=== PATIENT | female | born 2000 | race Caucasian/White ===

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

== ENCOUNTER 2020-02-01 22:17 | Emergency (ER) | payer BC, OTHER ==
[2020-02-01 22:48] VITALS: BP 127/65; PULSE 84
[2020-02-01] MEDS ORDERED: Lactated Ringers 1,000 ML IV ONE (22:52)
[2020-02-01] MEDS ORDERED: Ketorolac 30 MG/ML SDV IVPUSH ONE (22:52)
[2020-02-01] MEDS ORDERED: Ondansetron 4 MG/2 ML SDV IVPUSH ONE (22:52)
[2020-02-01] MEDS ORDERED: HYDROmorphone 0.5 MG/0.5 ML Syringe IVPUSH ONE (22:53)
--- NOTE | 2020-02-01 23:01 | EDM.PDOC ---
ED HPI GENERAL MEDICAL PROBLEM - General Chief Complaint: Abdominal Pain Stated Complaint: RIGHT SIDE PAIN Time Seen by Provider: 02/01/20 22:45 Source of Information: Reports: Patient, Old Records, RN History Limitations: Reports: No Limitations - History of Present Illness INITIAL COMMENTS - FREE TEXT/NARRATIVE: 19 yo female presents with intermittent RLQ abdominal pain that began abruptly tonight about 10pm. No hx of the same. Is associated with nausea and vomiting. No recent GI issues. Stopped having menses when her current BC pills were started. No hematemesis. Onset: Today, Sudden Onset Date: 02/01/20 Onset Time: 22:00 Duration: Minutes:, Waxing/Waning Location: Reports: Abdomen (RLQ) Quality: Reports: Pressure Severity: Severe (at times) Improves with: Reports: None Worsens with: Reports: Other (unknown) Context: Reports: Other (See HPI) Associated Symptoms: Reports: Nausea/Vomiting. 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: Reports: Other (see below) (none) - Related Data Allergies Allergy/AdvReac Type Severity Reaction Status Date / Time No Known Allergies Allergy Verified 02/01/20 22:37 Home Meds: Home Meds Citalopram Hydrobromide [Celexa] 1 tab PO DAILY 09/15/19 [History] Norethindrone 1 tab PO DAILY 09/15/19 [History] Past Medical History - Past Health History Medical/Surgical History: Denies Medical/Surgical History Psychiatric History: Reports: Depression Endocrine/Metabolic History: Reports: Obesity/BMI 30+ - Infectious Disease History Infectious Disease History: Reports: Shingles - Past Surgical History Head Surgeries/Procedures: Reports: None Endocrine Surgical History: Reports: None Dermatological Surgical History: Reports: None Social & Family History - Tobacco Use Smoking Status *Q: Never Smoker Second Hand Smoke Exposure: No - Caffeine Use Caffeine Use: Reports: Coffee - Recreational Drug Use Recreational Drug Use: No ED ROS GENERAL - Review of Systems Review Of Systems: See Below Constitutional: Reports: No Symptoms HEENT: Reports: No Symptoms Respiratory: Reports: No Symptoms Cardiovascular: Reports: No Symptoms GI/Abdominal: Reports: Abdominal Pain (RLQ), Nausea, Vomiting. Denies: Black Stool, Bloody Stool, Constipation, Diarrhea, Distension, Flatus, Hematemesis, Hematochezia, Melena : Reports: Flank Pain (at times on the right), Other (amenorrhea). Denies: Dysuria, Hematuria Musculoskeletal: Reports: No Symptoms Skin: Reports: No Symptoms Neurological: Reports: No Symptoms ED EXAM, GI/ABD - Physical Exam Exam: See Below Exam Limited By: No Limitations General Appearance: Alert, WD/WN, Mild Distress Eyes: Bilateral: Normal Appearance Ears: Normal External Exam, Normal Canal, Hearing Grossly Normal, Normal TMs Nose: Normal Inspection, No Blood Throat/Mouth: Normal Inspection, Normal Lips, Normal Oropharynx, Normal Voice, No Airway Compromise Head: Atraumatic, Normocephalic Neck: Normal Inspection Respiratory/Chest: No Respiratory Distress, Lungs Clear, Normal Breath Sounds, No Accessory Muscle Use Cardiovascular: Regular Rate, Rhythm, No Edema GI/Abdominal Exam: Soft, Non-Tender, No Distention, Abnormal Bowel Sounds (decreased). No: Distended, Guarding, Rigid, Rebound, Tender Back Exam: Normal Inspection Extremities: Normal Inspection, Normal Range of Motion, Non-Tender, No Pedal Edema Neurological: Alert, Oriented, CN II-XII Intact, Normal Cognition Psychiatric: Normal Affect, Normal Mood Skin Exam: Warm, Dry, Intact, Normal Color, No Rash Course - Vital Signs Last Recorded V/S: Last Vital Signs Temp 35.4 C L 02/01/20 22:44 Pulse 84 02/01/20 22:44 Resp 18 02/01/20 22:44 BP 127/65 02/01/20 22:44 Pulse Ox 98 02/01/20 22:44 - Orders/Labs/Meds Labs: Laboratory Tests 02/01/20 02/01/20 02/01/20 Range/Units 23:13 23:52 23:52 WBC 11.8 H (4.5-11.0) K/uL RBC 4.33 (3.30-5.50) M/uL Hgb 12.4 (12.0-15.0) g/dL Hct 38.2 (36.0-48.0) % MCV 88 (80-98) fL MCH 29 (27-31) pg MCHC 33 (32-36) % Plt Count 218 (150-400) K/uL Sodium 137 L (140-148) mmol/L Potassium 3.1 L (3.6-5.2) mmol/L Chloride 101 (100-108) mmol/L Carbon Dioxide 25 (21-32) mmol/L Anion Gap 14.1 H (5.0-14.0) mmol/L BUN 11 (7-18) mg/dL Creatinine 1.0 (0.6-1.0) mg/dL Est Cr Clr Drug Dosing 81.42 mL/min Estimated GFR (MDRD) > 60 (>60) Glucose 110 H (74-106) mg/dL Calcium 9.2 (8.5-10.1) mg/dL C-Reactive Protein (0.0-0.3) mg/dL Urine Color Yellow (YELLOW) Urine Appearance Clear (CLEAR) Urine pH 7.0 (5.0-8.0) Ur Specific [place] 1.025 (1.008-1.030) Urine Protein Negative (NEGATIVE) mg/dL Urine Glucose (UA) Negative (NEGATIVE) mg/dL Urine Ketones Negative (NEGATIVE) mg/dL Urine Occult Blood Negative (NEGATIVE) Urine Nitrite Negative (NEGATIVE) Urine Bilirubin Negative (NEGATIVE) Urine Urobilinogen 0.2 (0.2-1.0) EU/dL Ur Leukocyte Esterase Negative (NEGATIVE) Urine RBC 0-5 (0-5) Urine WBC 0-5 (0-5) Ur Epithelial Cells Many Amorphous Sediment Few Urine Bacteria Few Urine Mucus Not seen Urine HCG, Qual 02/02/20 02/02/20 Range/Units 00:03 00:20 WBC (4.5-11.0) K/uL RBC (3.30-5.50) M/uL Hgb (12.0-15.0) g/dL Hct (36.0-48.0) % MCV (80-98) fL MCH (27-31) pg MCHC (32-36) % Plt Count (150-400) K/uL Sodium (140-148) mmol/L Potassium (3.6-5.2) mmol/L Chloride (100-108) mmol/L Carbon Dioxide (21-32) mmol/L Anion Gap (5.0-14.0) mmol/L BUN (7-18) mg/dL Creatinine (0.6-1.0) mg/dL Est Cr Clr Drug Dosing mL/min Estimated GFR (MDRD) (>60) Glucose (74-106) mg/dL Calcium (8.5-10.1) mg/dL C-Reactive Protein 0.51 H (0.0-0.3) mg/dL Urine Color (YELLOW) Urine Appearance (CLEAR) Urine pH (5.0-8.0) Ur Specific [place] (1.008-1.030) Urine Protein (NEGATIVE) mg/dL Urine Glucose (UA) (NEGATIVE) mg/dL Urine Ketones (NEGATIVE) mg/dL Urine Occult Blood (NEGATIVE) Urine Nitrite (NEGATIVE) Urine Bilirubin (NEGATIVE) Urine Urobilinogen (0.2-1.0) EU/dL Ur Leukocyte Esterase (NEGATIVE) Urine RBC (0-5) Urine WBC (0-5) Ur Epithelial Cells Amorphous Sediment Urine Bacteria Urine Mucus Urine HCG, Qual Negative Meds: Medications Discontinued Medications Generic Name Dose Route Start Last Admin Trade Name Freq PRN Reason Stop Dose Admin Hydromorphone HCl 0.5 mg 02/01/20 22:53 02/01/20 23:17 Dilaudid IVPUSH 02/01/20 22:54 0.5 mg ONETIME ONE Administration Hydromorphone HCl 0.5 mg 02/02/20 00:39 02/02/20 00:49 Dilaudid IVPUSH 02/02/20 00:40 0.5 mg ONETIME ONE Administration Lactated Ringer's 1,000 mls @ 1,000 mls/hr 02/01/20 22:52 02/01/20 23:21 Ringers, Lactated IV 02/01/20 23:51 1,000 mls/hr BOLUS ONE Administration Ketorolac Tromethamine 30 mg 02/01/20 22:52 02/01/20 23:20 Toradol IVPUSH 02/01/20 22:53 30 mg ONETIME ONE Administration Ondansetron HCl 4 mg 02/01/20 22:52 02/01/20 23:18 Zofran IVPUSH 02/01/20 22:53 4 mg ONETIME ONE Administration - Radiology Interpretation Free Text/Narrative:: CT abd/pelvis without contrast- IMPRESSION: 2 millimeter calculus right UVJ with mild right hydronephrosis. Normal appearing appendix. 3.0 centimeter left ovarian cyst. Dictated by Josh Velazco MD @ 02/02/2020 1:32:[address] Results Date: 02/02/20 CT Results Time: 01:35 Departure - Departure Time of Disposition: 01:50 Disposition: Home, Self-Care 01 Condition: Fair Clinical Impression: Renal colic on right side, Hypokalemia - Discharge Information *PRESCRIPTION DRUG MONITORING PROGRAM REVIEWED*: No *COPY OF PRESCRIPTION DRUG MONITORING REPORT IN PATIENT VINNY: No Instructions: Kidney Stones, [id number], Hypokalemia, Potassium Content of Foods Referrals: Mary Templeton MD [Primary Care Provider] - Forms: ED Department Discharge Additional Instructions: Avoid salt and eat a diet more rich in potassium. Drink ample fluids. Strain your urine and save any sediment for possible testing. Take Percocet as needed for pain relief per prescription directions. Take ibuprofen 600 mg every 6 hrs, next dose after 5 am today. Use Zofran as needed for nausea control. Recheck for fever. See your provider as needed. No driving tonight. Sepsis Event Note (ED) - Evaluation Sepsis Screening Result: No Definite Risk - Focused Exam Vital Signs: Vital Signs Temp Pulse Resp BP Pulse Ox 02/01/20 22:44 35.4 C L 84 18 127/65 98 02/01/20 22:40 35.4 C L 84 18 127/65 98
[2020-02-02] MEDS ORDERED: HYDROmorphone 0.5 MG/0.5 ML Syringe IVPUSH ONE (00:39)
--- NOTE | 2020-02-02 01:34 | CRLCT ---
INDICATION: Lower quadrant pain TECHNIQUE: CT abdomen and pelvis acquired without IV contrast. COMPARISON: None FINDINGS: Lower chest: Unremarkable. Liver: Unremarkable. Spleen: Unremarkable. Pancreas: Unremarkable. Gallbladder and bile ducts: Unremarkable. Kidneys: 2 millimeter calculus right UVJ with mild right hydronephrosis. Adrenal glands: Unremarkable. GI tract: Unremarkable. Appendix is normal. Vascular structures: Unremarkable. Lymph nodes: Unremarkable. Miscellaneous: Unremarkable. No free air or significant free fluid. Pelvic Organs: 3.0 centimeter left ovarian cyst. Bones: Unremarkable for age. IMPRESSION: 2 millimeter calculus right UVJ with mild right hydronephrosis. Normal appearing appendix. 3.0 centimeter left ovarian cyst. Dictated by Josh Velazco MD @ 02/02/2020 1:32:39 AM Please note that all CT scans at this facility use dose modulation, iterative reconstruction, and/or weight-based dosing when appropriate to reduce radiation dose to as low as reasonably achievable. Dictated by: Josh Velazco MD @ 02/02/2020 01:32:44 (Electronically Signed)
[2020-02-02] MEDS ORDERED: Potassium Chloride 10 MEQ Cap.ER PO ONE (01:36)
== END 2020-02-02 02:04 | disposition home or self-care (01) ==
LOC: JP.ED 22:17
DX: N13.2 Hydronephrosis with renal and ureteral calculous obstruction (principal); E87.6 Hypokalemia; F32.9 Major depressive disorder, single episode, unspecified; E66.9 Obesity, unspecified; Z68.41 Body mass index [BMI] 40.0-44.9, adult; Z79.899 Other long term (current) drug therapy
CPT/HCPCS: 36415; 74176; 80048; 81001; 81025; 85027; 86140; 96361; 96374; 96375; 96376; 99284; A9270; J1170; J1885; J2405; J7120; 99283